=== PATIENT | male | born 1990 | race Caucasian/White ===

== ENCOUNTER 2019-08-07 13:58 | Observation (INO) | payer BC ==
[2019-08-07] MEDS ORDERED: SODIUM CHLORIDE 0.9% 1,000 ML IV STA (14:40)
[2019-08-07] MEDS ORDERED: ACETAMINOPHEN TAB 325 MG TAB PO STA (14:41)
--- NOTE | 2019-08-07 15:30 | ED ---
General Adult HPI - General Chief complaint: Recheck/Abnormal Lab/Rx Stated complaint: hemorrhoids Time Seen by Provider: 08/07/19 14:22 Source: patient, RN notes reviewed, old records reviewed Mode of arrival: ambulatory Limitations: no limitations - History of Present Illness Initial comments: 29-year-old male patient presents to ED for chief complaint of rectal pain. Patient reports that he has history of external hemorrhoids. He states they began having pain and 07/30/19. He states that she went to [facility] yesterday and was prescribed topical steroid cream as well as fiber. He presents to ED because the pain is worse. Otherwise he states he feels well. Denies any cough congestion or any upper respiratory symptoms. Denies any reas on for immunocompromisation. He does report that he has some pain between his coccyx in his rectum. He denies any other complaints at this time. Systemic: Pt denies fatigue, fever/chills, rash. Pt denies weakness, night sweats, weight loss. Neuro: Pt denies headache, visual disturbances, syncope or pre-syncope. HEENT: Pt denies ocular discharge or irritation, otalgia, rhinorrhea, pharyngitis or notable lymphadenopathy. Cardiopulmonary: Pt denies chest pain, SOB, heart palpitations, dyspnea on exertion. Abdominal/GI: Pt denies abdominal pain, n/v/d. : Pt denies dysuria, burning w/ urination, frequency/urgency. Denies new onset urinary or bowel incontinence. MSK: Pt denies myalgia, loss of strength or function in extremities. Neuro: Pt denies new onset weakness, paresthesias. - Related Data Home Medications Medication Instructions Recorded Confirmed Hydrocortisone Pr Cream 1 applic RECTAL BID PRN 08/07/19 08/07/19 [Proctosol-Hc 2.5%] Ibuprofen [Advil] 800 mg PO DAILY PRN 08/07/19 08/07/19 Allergies Allergy/AdvReac Type Severity Reaction Status Date / Time cetirizine [From [facility]] Allergy Rash/Hives Verified 08/07/19 16:00 Review of Systems ROS Statement: Those systems with pertinent positive or pertinent negative responses have been documented in the HPI. ROS Other: All systems not noted in ROS Statement are negative. 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 HEENT: NC/AT, trachea midline. External ears appear normal, without discharge. Mucous membranes moist. Eyes PERRLA, EOM intact. There is no scleral icterus. No pallor noted. Cardiopulmonary: RRR, no murmurs, rubs or gallops, no JVD noted. Lungs CTAB in anterior and posterior rios. No peripheral edema. Abdominal exam: Abdomen soft and non-distended. Abdomen non-tender to palpation in all 4 quadrants. Bowel sounds active in LLQ. No hepatosplenomegaly. No ecchymosis Neuro: CN II-XII grossly intact. No nuchal rigidity. No raccon eyes, no gutierrez sign, no hemotympanum. No cervical spinal tenderness. MSK: No posterior calf tenderness bilaterally, homans sign negative bilaterally. Posterior tibialis and radial pulse +2 bilaterally. Sensation intact in upper and lower extremities. Full active ROM in upper and lower extremities, 5/5 stregnth. Rectal: External hemorrhoids noted. Nonthrombosed, nonbleeding. Mild amount of tenderness between coccyx and rectum region. There are no external skin changes. Limitations: no limitations Course Vital Signs 08/07/19 08/07/19 08/07/19 14:15 14:42 16:47 Temperature 100.8 F H 98.8 F 98.2 F Pulse Rate 98 75 Respiratory 18 18 Rate Blood Pressure 131/80 136/84 O2 Sat by Pulse 99 100 Oximetry 08/07/19 18:24 Temperature Pulse Rate 81 Respiratory 20 Rate Blood Pressure 135/56 O2 Sat by Pulse 99 Oximetry Medical Decision Making - Medical Decision Making 29-year-old male patient presents to ED for chief complaint painful external hemorrhoid ongoing for approximately the last week. Patient also reports some pain between his rectum and coccyx region. Patient vital signs are displayed a fever initially. Physical exam does display some tenderness between the coccyx and the rectum. There are no external skin changes. Laboratory investigations reveal leukocytosis. Ultrasound does displayed possible abscess. Patient is initiated on Zosyn. Case was discussed with Dr. Andrea who came evaluated patient and will admit. Case discussed with Dr. Hoyt. - Lab Data Result diagrams: 08/07/19 15:05 08/07/19 15:05 Lab Results 08/07/19 08/07/19 08/07/19 Range/Units 15:05 15:05 15:05 WBC 20.6 H (3.8-10.6) k/uL RBC 4.26 L (4.30-5.90) m/uL Hgb 13.8 (13.0-17.5) gm/dL Hct 39.8 (39.0-53.0) % MCV 93.5 (80.0-100.0) fL MCH 32.4 (25.0-35.0) pg MCHC 34.7 (31.0-37.0) g/dL RDW 11.8 (11.5-15.5) % Plt Count 229 (150-450) k/uL Neutrophils % 89 % Lymphocytes % 6 % Monocytes % 5 % Eosinophils % 0 % Basophils % 0 % Neutrophils # 18.3 H (1.3-7.7) k/uL Lymphocytes # 1.2 (1.0-4.8) k/uL Monocytes # 0.9 (0-1.0) k/uL Eosinophils # 0.1 (0-0.7) k/uL Basophils # 0.0 (0-0.2) k/uL Sodium 140 (137-145) mmol/L Potassium 4.0 (3.5-5.1) mmol/L Chloride 108 H (98-107) mmol/L Carbon Dioxide 23 (22-30) mmol/L Anion Gap 9 mmol/L BUN 10 (9-20) mg/dL Creatinine 0.73 (0.66-1.25) mg/dL Est GFR (CKD-EPI)AfAm >90 (>60 ml/min/1.73 sqM) Est GFR (CKD-EPI)NonAf >90 (>60 ml/min/1.73 sqM) Glucose 119 H (74-99) mg/dL Plasma Lactic Acid Alex 0.9 (0.7-2.0) mmol/L Calcium 9.3 (8.4-10.2) mg/dL Total Bilirubin 0.7 (0.2-1.3) mg/dL AST 18 (17-59) U/L ALT 16 (4-49) U/L Alkaline Phosphatase 91 (38-126) U/L Total Protein 6.6 (6.3-8.2) g/dL Albumin 3.8 (3.5-5.0) g/dL Lipase 33 (23-300) U/L Urine Color Urine Appearance (Clear) Urine pH (5.0-8.0) Ur Specific Leiter (1.001-1.035) Urine Protein (Negative) Urine Glucose (UA) (Negative) Urine Ketones (Negative) Urine Blood (Negative) Urine Nitrite (Negative) Urine Bilirubin (Negative) Urine Urobilinogen (<2.0) mg/dL Ur Leukocyte Esterase (Negative) 08/07/19 Range/Units 16:06 WBC (3.8-10.6) k/uL RBC (4.30-5.90) m/uL Hgb (13.0-17.5) gm/dL Hct (39.0-53.0) % MCV (80.0-100.0) fL MCH (25.0-35.0) pg MCHC (31.0-37.0) g/dL RDW (11.5-15.5) % Plt Count (150-450) k/uL Neutrophils % % Lymphocytes % % Monocytes % % Eosinophils % % Basophils % % Neutrophils # (1.3-7.7) k/uL Lymphocytes # (1.0-4.8) k/uL Monocytes # (0-1.0) k/uL Eosinophils # (0-0.7) k/uL Basophils # (0-0.2) k/uL Sodium (137-145) mmol/L Potassium (3.5-5.1) mmol/L Chloride (98-107) mmol/L Carbon Dioxide (22-30) mmol/L Anion Gap mmol/L BUN (9-20) mg/dL Creatinine (0.66-1.25) mg/dL Est GFR (CKD-EPI)AfAm (>60 ml/min/1.73 sqM) Est GFR (CKD-EPI)NonAf (>60 ml/min/1.73 sqM) Glucose (74-99) mg/dL Plasma Lactic Acid Alex (0.7-2.0) mmol/L Calcium (8.4-10.2) mg/dL Total Bilirubin (0.2-1.3) mg/dL AST (17-59) U/L ALT (4-49) U/L Alkaline Phosphatase (38-126) U/L Total Protein (6.3-8.2) g/dL Albumin (3.5-5.0) g/dL Lipase (23-300) U/L Urine Color Yellow Urine Appearance Clear (Clear) Urine pH 6.0 (5.0-8.0) Ur Specific Leiter 1.028 (1.001-1.035) Urine Protein Trace H (Negative) Urine Glucose (UA) 1+ H (Negative) Urine Ketones 1+ H (Negative) Urine Blood Negative (Negative) Urine Nitrite Negative (Negative) Urine Bilirubin Negative (Negative) Urine Urobilinogen <2.0 (<2.0) mg/dL Ur Leukocyte Esterase Negative (Negative) Disposition Clinical Impression: Naheed-rectal abscess Disposition: ADMITTED IP TO THIS [facility] Condition: Stable Is patient prescribed a controlled substance at d/c from ED?: No Referrals: None,Stated [Primary Care Provider] - 1-2 days
[2019-08-07 16:11] LABS: Basophils % (A) 0 %; Eosinophils # (A) 0.1 k/uL (0-0.7); Eosinophils % (A) 0 %; HCT 39.8 % (39.0-53.0); HGB 13.8 gm/dL (13.0-17.5); Lymphocytes # (A) 1.2 k/uL (1.0-4.8); Lymphocytes % (A) 6 %; MCH 32.4 pg (25.0-35.0); MCHC 34.7 g/dL (31.0-37.0); MCV 93.5 fL (80.0-100.0); Monocytes # (A) 0.9 k/uL (0-1.0); Monocytes % (A) 5 %; Neutrophils # (A) 18.3 k/uL (1.3-7.7); Neutrophils % (A) 89 %; Platelet Count 229 k/uL (150-450); RBC 4.26 m/uL (4.30-5.90); RDW 11.8 % (11.5-15.5); WBC 20.6 k/uL (3.8-10.6)
[2019-08-07 16:28] LABS: ALT 16 U/L (4-49); AST 18 U/L (17-59); African American GFR (CKD) >90 (>60 ml/min/1.73 sqM); Albumin 3.8 g/dL (3.5-5.0); Alkaline Phosphatase 91 U/L (38-126); Anion Gap 9 mmol/L; Blood Urea Nitrogen 10 mg/dL (9-20); Calcium 9.3 mg/dL (8.4-10.2); Carbon Dioxide 23 mmol/L (22-30); Chloride 108 mmol/L (98-107); Glucose 119 mg/dL (74-99); Non-African American GFR(CKD) >90 (>60 ml/min/1.73 sqM); Sodium 140 mmol/L (137-145); Total Bilirubin 0.7 mg/dL (0.2-1.3); Total Protein 6.6 g/dL (6.3-8.2)
[2019-08-07 16:35] LABS: Appearance,Urine Clear (Clear); Bilirubin,Urine Negative (Negative); Blood,Urine Negative (Negative); Color,Urine Yellow; Glucose,Urine (UA) 1+ (Negative); Ketones,Urine 1+ (Negative); Leukocyte Esterase,Urine Negative (Negative); Nitrite,Urine Negative (Negative); Protein,Urine Trace (Negative); Specific Gravity,Urine 1.028 (1.001-1.035); Urobilinogen,Urine <2.0 mg/dL (<2.0)
--- NOTE | 2019-08-07 17:06 | US ---
EXAMINATION TYPE: US pelvic limited DATE OF EXAM: 08/07/2019 COMPARISON: NONE CLINICAL HISTORY: rectal pain . Redness around rectum. Patient states no trauma or injury. Scanning was performed directly over red raised area at rectum. There is a complex fluid collection w ith vascularity measuring 5.5 x 3.9 cm. On real time imaging there is swirling and movement of the in ternal echoes. IMPRESSION: There is complex area of fluid in the area of redness around the rectum consistent with a bscess. Hematoma also possible.
[2019-08-07] MEDS ORDERED: PIPERACILLIN-TAZOBACTAM 3.375 GM in SODIUM CHLORIDE 0.9% 100 ML IVPB STA (17:09)
[2019-08-07] MEDS ORDERED: NALOXONE 0.4 MG/ML 1 ML VIAL IV PRN (17:54)
[2019-08-07] MEDS ORDERED: MORPHINE SULFATE 4 MG/ML SYRINGE IV PRN (17:54)
--- NOTE | 2019-08-07 18:02 | XR ---
EXAMINATION TYPE: XR KUB DATE OF EXAM: 08/07/2019 COMPARISON: NONE HISTORY: Rectal pain TECHNIQUE: 2 views FINDINGS: 2 views upright show no sign of intestinal obstruction or pneumoperitoneum. Fecal pattern i s normal. There is no sign of a mass. Lung bases are clear. IMPRESSION: Nonacute abdomen.
[2019-08-07] MEDS: HYDROmorphone 1 MG/ML 1 ML SYRINGE IVP PRN ×2 (18:10→21:44)
[2019-08-07] MEDS: SODIUM CHLORIDE 0.9% 1,000 ML IV SCH (18:13)
[2019-08-07] MEDS: ACETAMINOPHEN TAB 325 MG TAB PO PRN (23:15)
[2019-08-08] MEDS: PIPERACILLIN-TAZOBACTAM 3.375 GM in SODIUM CHLORIDE 0.9% 100 ML IVPB SCH ×4 (00:24→22:46)
[2019-08-08] MEDS: HYDROmorphone 1 MG/ML 1 ML SYRINGE IVP PRN ×5 (02:09→22:07)
[2019-08-08] MEDS: SODIUM CHLORIDE 0.9% 1,000 ML IV SCH ×3 (04:17→22:46)
[2019-08-08] MEDS: ACETAMINOPHEN TAB 325 MG TAB PO PRN (05:58)
[2019-08-08 09:53] LABS: HCT 36.8 % (39.0-53.0); HGB 12.8 gm/dL (13.0-17.5); MCH 32.9 pg (25.0-35.0); MCHC 34.8 g/dL (31.0-37.0); MCV 94.8 fL (80.0-100.0); Mean Platelet Volume 7.5; Platelet Count 241 k/uL (150-450); RBC 3.89 m/uL (4.30-5.90); RDW 11.7 % (11.5-15.5); WBC 18.2 k/uL (3.8-10.6)
[2019-08-08] MEDS: IOPAMIDOL CONTRAST (ORAL USE) VIAL PO PRN ×2 (11:33→12:29)
[2019-08-08] MEDS ORDERED: HYDROmorphone 0.5 MG/0.5 ML SYRINGE IVP PRN (13:25)
[2019-08-08] MEDS ORDERED: ONDANSETRON 4 MG/2 ML VIAL IVP ONE (13:25)
[2019-08-08] MEDS ORDERED: DEXAMETHASONE SOD PHOSPHATE 10 MG/ML 1 ML VIAL IV ONE (13:25)
--- NOTE | 2019-08-08 13:51 | CT ---
EXAMINATION TYPE: CT pelvis w con DATE OF EXAM: 08/08/2019 COMPARISON: INDICATION: perirectal abscess DLP: 734.2 mGycm, Automated exposure control for dose reduction was used. CONTRAST: 100 mL of Isovue 300. Study performed with Oral Contrast TECHNIQUE: Axial images were obtained from above the diaphragm to the pubic rami in the axial plane a t 5 mm thick sections. Reconstructed images are reviewed on the computer in the coronal plane. FINDINGS: CT PELVIS: Loops of bowel within the abdomen and pelvis are normal. The study is performed with oral contras t. There are loops of bowel with incomplete distention or lacking oral contrast limiting their evalua tion. There is some diffuse rectal wall thickening appears to be present. There is some hypodensity p osterior to the rectum measuring 1.2 x 2.3 cm. Series 201 image 63. This could reflect the patient's reported perirectal abscess. Appendix: Normal as visualized. Urinary bladder: Normal. Genitourinary structures: Prostate hypertrophy is present Osseous structures: No suspicious lytic or sclerotic lesions. IMPRESSIONS: 1. There is some subtle hypodensity posterior to the rectum. Rectal wall thickening appears to be pr esent. Correlate for perirectal abscess.
[2019-08-08] MEDS: LACTATED RINGERS 1,000 ML IV SCH (15:24)
--- NOTE | 2019-08-08 15:28 | P.GSHP ---
History of Present Illness H&P Date: 08/07/19 Chief Complaint: Perirectal pain Is a 29-year-old male was admitted through the emergency room with complaints of perirectal pain. Patient ultrasound which is questionable for a perineal abscess. Patient has leukocytosis with white count 20,000. He states he has had pain for approximately 3 days. 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, Past Anesthesia/Blood Transfusion Reactions: No Reported Reaction Past Psychological History: No Psychological Hx Reported Smoking Status: Current every day smoker Past Alcohol Use History: Occasional Past Drug Use History: Marijuana Medications and Allergies Home Medications Medication Instructions Recorded Confirmed Type Hydrocortisone Pr Cream 1 applic RECTAL BID PRN 08/07/19 08/07/19 History [Proctosol-Hc 2.5%] Ibuprofen [Advil] 800 mg PO DAILY PRN 08/07/19 08/07/19 History Allergies Allergy/AdvReac Type Severity Reaction Status Date / Time cetirizine [From [facility]] Allergy Rash/Hives Verified 08/07/19 16:00 Surgical - Exam Vital Signs Temp Pulse Resp BP Pulse Ox 100.8 F H 98 18 131/80 99 08/07/19 14:15 08/07/19 14:15 08/07/19 14:15 08/07/19 14:15 08/07/19 14:15 - General well developed, well nourished, no distress - Eyes PERRL - ENT normal pinna - Neck no masses - Respiratory normal expansion - Cardiovascular Rhythm: regular - Abdomen Abdomen: soft, non tender - Rectum No evidence of abscess in the perianal area. There is some tenderness in the posterior position. However there is no fluctuant mass. Results - Labs 08/08/19 09:19 08/07/19 15:05 Abnormal Lab Results - Last 24 Hours (Table) 08/07/19 08/07/19 08/07/19 Range/Units 15:05 15:05 16:06 WBC 20.6 H (3.8-10.6) k/uL RBC 4.26 L (4.30-5.90) m/uL Hgb (13.0-17.5) gm/dL Hct (39.0-53.0) % Neutrophils # 18.3 H (1.3-7.7) k/uL Chloride 108 H (98-107) mmol/L Glucose 119 H (74-99) mg/dL Urine Protein Trace H (Negative) Urine Glucose (UA) 1+ H (Negative) Urine Ketones 1+ H (Negative) 08/08/19 Range/Units 09:19 WBC 18.2 H (3.8-10.6) k/uL RBC 3.89 L (4.30-5.90) m/uL Hgb 12.8 L (13.0-17.5) gm/dL Hct 36.8 L (39.0-53.0) % Neutrophils # (1.3-7.7) k/uL Chloride (98-107) mmol/L Glucose (74-99) mg/dL Urine Protein (Negative) Urine Glucose (UA) (Negative) Urine Ketones (Negative) Diabetes panel 08/07/19 Range/Units 15:05 Sodium 140 (137-145) mmol/L Potassium 4.0 (3.5-5.1) mmol/L Chloride 108 H (98-107) mmol/L Carbon Dioxide 23 (22-30) mmol/L BUN 10 (9-20) mg/dL Creatinine 0.73 (0.66-1.25) mg/dL Glucose 119 H (74-99) mg/dL Calcium 9.3 (8.4-10.2) mg/dL AST 18 (17-59) U/L ALT 16 (4-49) U/L Alkaline Phosphatase 91 (38-126) U/L Total Protein 6.6 (6.3-8.2) g/dL Albumin 3.8 (3.5-5.0) g/dL Calcium panel 08/07/19 Range/Units 15:05 Calcium 9.3 (8.4-10.2) mg/dL Albumin 3.8 (3.5-5.0) g/dL Pituitary panel 08/07/19 Range/Units 15:05 Sodium 140 (137-145) mmol/L Potassium 4.0 (3.5-5.1) mmol/L Chloride 108 H (98-107) mmol/L Carbon Dioxide 23 (22-30) mmol/L BUN 10 (9-20) mg/dL Creatinine 0.73 (0.66-1.25) mg/dL Glucose 119 H (74-99) mg/dL Calcium 9.3 (8.4-10.2) mg/dL Adrenal panel 08/07/19 Range/Units 15:05 Sodium 140 (137-145) mmol/L Potassium 4.0 (3.5-5.1) mmol/L Chloride 108 H (98-107) mmol/L Carbon Dioxide 23 (22-30) mmol/L BUN 10 (9-20) mg/dL Creatinine 0.73 (0.66-1.25) mg/dL Glucose 119 H (74-99) mg/dL Calcium 9.3 (8.4-10.2) mg/dL Total Bilirubin 0.7 (0.2-1.3) mg/dL AST 18 (17-59) U/L ALT 16 (4-49) U/L Alkaline Phosphatase 91 (38-126) U/L Total Protein 6.6 (6.3-8.2) g/dL Albumin 3.8 (3.5-5.0) g/dL Assessment and Plan Assessment: Probable perirectal abscess. Patient received IV antibiotic. He'll undergo computed tomography scan of his pelvis tomorrow.
--- NOTE | 2019-08-08 15:29 | P.PN ---
Progress Note - Text Progress Note Date: 08/08/19 The patient states he feels better. His CAT scan performed today shows a subtle area of thickness in the posterior rectum. There is no definite abscess. The patient states he feels better his pain is improved. On exam his vital signs are stable. Abdomen soft. Examination anus reveals no evidence of a abscess. There is no fluctuant mass. Resolving perirectal abscess. Patient will receive IV antibiotics.
[2019-08-09 08:42] LABS: HCT 39.2 % (39.0-53.0); HGB 13.3 gm/dL (13.0-17.5); MCH 32.2 pg (25.0-35.0); MCHC 33.8 g/dL (31.0-37.0); MCV 95.2 fL (80.0-100.0); Mean Platelet Volume 7.5; Platelet Count 279 k/uL (150-450); RBC 4.12 m/uL (4.30-5.90); RDW 11.8 % (11.5-15.5)
[2019-08-09] MEDS: PIPERACILLIN-TAZOBACTAM 3.375 GM in SODIUM CHLORIDE 0.9% 100 ML IVPB SCH ×3 (08:50→23:59)
--- NOTE | 2019-08-09 08:53 | P.PN ---
Progress Note - Text Progress Note Date: 08/09/19 Patient states he feels better. He has decreased pain. On exam his vital signs are stable. Examination of the perianal area reveals no significant swelling or induration. There is no fluctuant mass. There is no abscess palpable. Patient continue receive IV antibiotics. We will repeat his CBC today. No surgical intervention at this point.
[2019-08-09] MEDS: HYDROmorphone 1 MG/ML 1 ML SYRINGE IVP PRN ×4 (10:05→23:34)
[2019-08-09] MEDS: SODIUM CHLORIDE 0.9% 1,000 ML IV SCH ×2 (12:25→21:36)
[2019-08-09] MEDS: LACTATED RINGERS 1,000 ML IV SCH (14:31)
[2019-08-10] MEDS: SODIUM CHLORIDE 0.9% 1,000 ML IV SCH ×2 (06:15→15:50)
[2019-08-10] MEDS: PIPERACILLIN-TAZOBACTAM 3.375 GM in SODIUM CHLORIDE 0.9% 100 ML IVPB SCH ×2 (08:48→15:49)
--- NOTE | 2019-08-10 11:03 | P.PN ---
Progress Note - Text Progress Note Date: 08/10/19 The patient feels better. He states his rectal pain is improved. On exam vital signs are stable. Abdomen soft. There is no evidence of any perianal abscess. There is no evidence of any inflammatory changes or fluctuant masses. Resolving perianal abscess. Patient will receive IV antibiotics today. We discussed the discharge home tomorrow.
[2019-08-10] MEDS: HYDROmorphone 1 MG/ML 1 ML SYRINGE IVP PRN ×2 (13:33→17:01)
[2019-08-11 00:24] VITALS: TEMP 97.9
[2019-08-11] MEDS: PIPERACILLIN-TAZOBACTAM 3.375 GM in SODIUM CHLORIDE 0.9% 100 ML IVPB SCH ×3 (00:24→15:10)
[2019-08-11] MEDS: SODIUM CHLORIDE 0.9% 1,000 ML IV SCH ×2 (04:17→14:56)
[2019-08-11 08:12] VITALS: BP 92/54; PULSE 75; RESP 16
--- NOTE | 2019-08-11 13:49 | P.PN ---
Subjective Progress Note Date: 08/11/19 CHIEF COMPLAINT: Perirectal abscess HISTORY OF PRESENT ILLNESS: The patient is a 29-year-old male who presented with acute perirectal abscess. He presented with sepsis white count over 20,000. Since admission, WBC count has improved. He is on antibiotics. His pain is controlled. He is eager to go home. ROS: No reports of nausea and vomiting. No bowel movements. No fevers or chills. No new chest pain. No productive sputum PHYSICAL EXAM: VITAL SIGNS: Reviewed CONSTITUTIONAL: Well developed and in no acute distress. EYES: Conjuctivae without sclera icterus. Extraocular movements grossly intact. HEAD, EARS, NOSE, THROAT: Moist buccal mucosa. Head is atraumatic, normocephalic. Hears conversational speech. No nasal drainage. NECK: Supple. No thyroidomegaly. RESPIRATORY: Non-labored respirations and equal bilateral excursions. CARDIOVASCULAR: Palpable 2+ radial pulses. Regular rate. Regular rhythm. ABDOMEN: Soft. No peritonitis. MUSCULOSKELETAL: No gross deformity of the lower extremities noted. No clubbing. No cyanosis. SKIN: Good skin turgor. Well perfused. NEUROLOGIC: Cranial nerves II through XII grossly intact. No focal or lateralizing signs. PSYCH: Appropriate affect. Alert and oriented to person, place and time. CLINICAL LABS: White blood cell count down from 20.6-12.0. ASSESSMENT: 1. Acute perirectal abscess PLAN: 1. Ciprofloxacin for antibiotics has been prescribed. 2. Recommend sitz baths for perirectal pain. 3. Follow-up as outpatient. Objective - Vital Signs Vital signs: Vital Signs Temp 97.9 F 08/11/19 08:00 Pulse 75 08/11/19 08:00 Resp 16 08/11/19 08:00 BP 92/54 08/11/19 08:00 Pulse Ox 100 08/11/19 08:00 Intake & Output 08/10/19 08/11/19 08/11/19 18:59 06:59 18:59 Intake Total 1680 700 600 Balance 1680 700 600 Intake: Intake, IV Titration 100 700 Amount Piperacillin-Tazobactam 3 100 100 .375 gm In Sodium Chloride 0.9% 100 ml @ 25 mls/hr IVPB Q8HR [facility] Rx# :[id number] Sodium Chloride 0.9% 1, 600 000 ml @ 100 mls/hr IV . Q10H [facility] Rx#:[id number] Oral 1580 600 Other: Voiding Method Toilet # Voids 3 1 - Labs CBC & Chem 7: 08/09/19 08:14 08/07/19 15:05
--- NOTE | 2019-08-14 06:59 | CDI ---
Documentation Clarification Form Date: 08/14/2019 06:49:02 AM From: Faith Gan Phone: If you have a question about this query, please contact Shweta Romo Brush Cleaner at [phone] between 8am and 5pm. Admit Date: 08/09/2019 09:34:00 AM Patient Name: Antwan Go Visit Number: [id number] Discharge Date: 08/11/2019 03:25:00 PM ATTENTION: The Clinical Documentation Specialists (CDI) and [facility] Coding Staff appreciate your assistance in clarifying documentation. Please respond to the clarification below the line at the bottom and electronically sign. The CDI & [facility] Coding staff will review the response and follow-up if needed. Please note: Queries are made part of the Legal Health Record. If you have any questions, please contact the author of this message via ITS. Dr. Jack Gaytan PN 08/10 documents Patient presented with sepsis WBC's over 20,000. Please clarify if patient had sepsis or was this ruled out. History/Risk Factors: perirectal abscess Clinical Indicators: WBC 20.6 Lactic acid: 0.09 Vitals signs on admission: 100.8 F, 98 bpm, 18, 131/80, 99% RA Treatment: IV antibiotics Antibiotics: Ciproflaxin In your professional opinion, please clarify if these findings signify one of the following conditions, whether the condition is POA, and cause, if known: Condition Sepsis ruled out SIRS, without underlying infectious process Sepsis Severe Sepsis Septic Shock Other, please specify Unable to determine SIRS Criteria (2 or more of the following may indicate SIRS): -Temperature < 96.8F (36C) or > 101.0F (38.3C) -Heart Rate > 90 bpm -Respiratory Rate > 20 breaths/min or PaCO2 < 32 mmHg -White Blood Cell Count > 12,000 or < 4,000 cells/mm3 or > 10% bands -Lactate >2.0 mmol/L (>4.0 is equivalent to septic shock) [facility]eps[facility]
--- NOTE | 2019-08-17 17:06 | P.DS ---
Providers Date of admission: 08/07/19 22:01 Expected date of discharge: 08/11/19 Attending physician: Jack Gaytan Primary care physician: Stated None - Discharge Diagnosis(es) (1) Sepsis Status: Acute (2) Naheed-rectal abscess Status: Acute Hospital Course: CHIEF COMPLAINT: Perirectal abscess HISTORY OF PRESENT ILLNESS: The patient is a 29-year-old male who presented with acute perirectal abscess. He presented with sepsis white count over 20,000. Since admission, WBC count has improved. He is on antibiotics. His pain is controlled. He is eager to go home. ROS: No reports of nausea and vomiting. No bowel movements. No fevers or chills. No new chest pain. No productive sputum PHYSICAL EXAM: VITAL SIGNS: Reviewed CONSTITUTIONAL: Well developed and in no acute distress. EYES: Conjuctivae without sclera icterus. Extraocular movements grossly intact. HEAD, EARS, NOSE, THROAT: Moist buccal mucosa. Head is atraumatic, normocephalic. Hears conversational speech. No nasal drainage. NECK: Supple. No thyroidomegaly. RESPIRATORY: Non-labored respirations and equal bilateral excursions. CARDIOVASCULAR: Palpable 2+ radial pulses. Regular rate. Regular rhythm. ABDOMEN: Soft. No peritonitis. MUSCULOSKELETAL: No gross deformity of the lower extremities noted. No clubbing. No cyanosis. SKIN: Good skin turgor. Well perfused. NEUROLOGIC: Cranial nerves II through XII grossly intact. No focal or lateralizing signs. PSYCH: Appropriate affect. Alert and oriented to person, place and time. CLINICAL LABS: White blood cell count down from 20.6-12.0. ASSESSMENT: 1. Acute perirectal abscess PLAN: 1. Ciprofloxacin for antibiotics has been prescribed. 2. Recommend sitz baths for perirectal pain. 3. Follow-up as outpatient. Patient Condition at Discharge: Stable Plan - Discharge Summary Discharge Rx Participant: No New Discharge Prescriptions: New Ciprofloxacin HCl [Cipro] 500 mg PO Q12HR 3 Days #6 tab HYDROcodone/APAP 5-325MG [[place] 5-325] 1 tab PO Q6HR PRN #10 tab PRN Reason: Pain No Action Hydrocortisone Pr Cream [Proctosol-Hc 2.5%] 1 applic RECTAL BID PRN PRN Reason: hemorroids Ibuprofen [Advil] 800 mg PO DAILY PRN PRN Reason: Pain Discharge Medication List Hydrocortisone Pr Cream [Proctosol-Hc 2.5%] 1 applic RECTAL BID PRN 08/07/19 [History] Ibuprofen [Advil] 800 mg PO DAILY PRN 08/07/19 [History] Ciprofloxacin HCl [Cipro] 500 mg PO Q12HR 3 Days #6 tab 08/10/19 [Rx] HYDROcodone/APAP 5-325MG [[place] 5-325] 1 tab PO Q6HR PRN #10 tab 08/10/19 [Rx] Follow up Appointment(s)/Referral(s): None,Stated [Primary Care Provider] - 1-2 days (Dr. Sumeet Harrison, [facility] primary care ) Jack Gaytan MD [STAFF PHYSICIAN] - 1 Week Patient Instructions/Handouts: Sitz Bath (DC), Rectal Abscess (DC) Activity/Diet/Wound Care/Special Instructions: Use sitz bath 15 minutes twice daily. Discharge/Stand Alone Forms: Work/School Release Discharge Disposition: HOME SELF-CARE
== END 2019-08-11 15:25 | disposition home or self-care (01) ==
LOC: EC 13:58 → 1SOBS 22:01 → OBSVTOIN 08-09 09:34 → INTOOBSV 08-09 09:34 → UNDODISIN 08-11 15:25
PROVIDERS: ADMIT Surgery; ATTEND Surgery
DX: A41.9 Sepsis, unspecified organism (principal); K61.1 Rectal abscess; K64.4 Residual hemorrhoidal skin tags; Z87.442 Personal history of urinary calculi; Z03.818 Encounter for observation for suspected exposure to other biological agents ruled out; Z89.022 Acquired absence of left finger(s); F17.200 Nicotine dependence, unspecified, uncomplicated; Z88.8 Allergy status to other drugs, medicaments and biological substances
CPT/HCPCS: 96361 ×4; 96366 ×4; 96376 ×4; 96365; 96375; 99285; 36415; 80053; 83605; 83690; 85025; 85027 ×2; 81003; 74018; 76857; 72193; G0378 ×5; U0003; J2543 ×5; J1170 ×4; Q9967

== ENCOUNTER 2020-05-18 20:24 | Emergency (ER) | payer BC ==
[2020-05-18] MEDS ORDERED: SODIUM CHLORIDE 0.9% 2,400 ML IV STA (21:02)
[2020-05-18] MEDS ORDERED: cefTRIAXone IN SWFI 1,000 MG/10 ML SYRINGE IVP STA (21:19)
[2020-05-18] MEDS ORDERED: KETOROLAC 15 MG/ML 1 ML VIAL IVP STA (21:20)
[2020-05-18 21:39] LABS: Basophils # (A) 0.1 k/uL (0-0.2); Basophils % (A) 1 %; Eosinophils # (A) 0.1 k/uL (0-0.7); Eosinophils % (A) 0 %; HCT 45.9 % (39.0-53.0); HGB 16.6 gm/dL (13.0-17.5); Lymphocytes # (A) 1.4 k/uL (1.0-4.8); Lymphocytes % (A) 12 %; MCH 32.8 pg (25.0-35.0); MCHC 36.2 g/dL (31.0-37.0); MCV 90.8 fL (80.0-100.0); Mean Platelet Volume 8.3; Monocytes # (A) 0.6 k/uL (0-1.0); Monocytes % (A) 5 %; Neutrophils # (A) 9.8 k/uL (1.3-7.7); Neutrophils % (A) 82 %; Platelet Count 123 k/uL (150-450); RBC 5.06 m/uL (4.30-5.90); RDW 11.7 % (11.5-15.5); WBC 11.9 k/uL (3.8-10.6)
[2020-05-18 21:41] VITALS: TEMP 99.2
[2020-05-18] MEDS ORDERED: LIDOCAINE 1%-EPI 1:100,000 20 ML VIAL SQ STA (21:53)
[2020-05-18 22:20] LABS: ALT 17 U/L (4-49); AST 23 U/L (17-59); African American GFR (CKD) >90 (>60 ml/min/1.73 sqM); Albumin 4.6 g/dL (3.5-5.0); Alkaline Phosphatase 89 U/L (38-126); Anion Gap 11 mmol/L; Blood Urea Nitrogen 13 mg/dL (9-20); Calcium 9.5 mg/dL (8.4-10.2); Carbon Dioxide 24 mmol/L (22-30); Chloride 107 mmol/L (98-107); Glucose 106 mg/dL (74-99); Non-African American GFR(CKD) >90 (>60 ml/min/1.73 sqM); Sodium 142 mmol/L (137-145); Total Bilirubin 0.9 mg/dL (0.2-1.3); Total Protein 7.4 g/dL (6.3-8.2)
--- NOTE | 2020-05-18 22:28 | ED ---
Skin/Abscess/FB HPI - General Chief complaint: Skin/Abscess/Foreign Body Stated complaint: Abscess Time Seen by Provider: 05/18/20 20:49 Source: patient Mode of arrival: wheelchair Limitations: no limitations - History of Present Illness Initial comments: 30-year-old male presents to emergency Department with a chief complaint of an abscess. Patient reports abscess is located near the coccyx. He also reports having chills earlier today. States he has been previously evaluated for the same abscess about 1 year ago and was only treated with antibiotics. Patient reports now this one has increased over the last several days. States that his difficult to walk due to the discomfort. Pain is especially worse whenever he sitting down. He denies any nausea vomiting diarrhea. - Related Data Home Medications Medication Instructions Recorded Confirmed Hydrocortisone Pr Cream 1 applic RECTAL BID PRN 08/07/19 08/07/19 [Proctosol-Hc 2.5%] Ibuprofen [Advil] 800 mg PO DAILY PRN 08/07/19 08/07/19 Previous Rx's Medication Instructions Recorded Ciprofloxacin HCl [Cipro] 500 mg PO Q12HR 3 Days #6 tab 08/10/19 HYDROcodone/APAP 5-325MG [Hoffman 1 tab PO Q6HR PRN #10 tab 08/10/19 5-325] Clindamycin [Cleocin] 150 mg PO Q6H #40 capsule 05/18/20 Allergies Allergy/AdvReac Type Severity Reaction Status Date / Time cetirizine [From Zyrtec] Allergy Rash/Hives Verified 05/18/20 20:31 Review of Systems ROS Statement: Those systems with pertinent positive or pertinent negative responses have been documented in the HPI. ROS Other: All systems not noted in ROS Statement are negative. 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, Past Anesthesia/Blood Transfusion Reactions: No Reported Reaction Past Psychological History: No Psychological Hx Reported Smoking Status: Current every day smoker Past Alcohol Use History: Occasional Past Drug Use History: Marijuana General Exam Limitations: no limitations General appearance: alert, in no apparent distress Head exam: Present: atraumatic, normocephalic, normal inspection Eye exam: Present: normal appearance, PERRL, EOMI Pupils: Present: normal accommodation ENT exam: Present: normal exam, normal oropharynx, mucous membranes moist, TM's normal bilaterally, normal external ear exam Neck exam: Present: normal inspection, full ROM. Absent: tenderness Respiratory exam: Present: normal lung sounds bilaterally. Absent: respiratory distress Cardiovascular Exam: Present: regular rate, normal rhythm, normal heart sounds GI/Abdominal exam: Present: soft. Absent: distended, tenderness, guarding, rebound Rectal exam: Present: normal inspection (Fluctuant abscess measuring approximately 1 cm in diameter located closer to the coccyx.) Extremities exam: Present: normal inspection, full ROM. Absent: tenderness Back exam: Present: normal inspection, full ROM. Absent: tenderness Neurological exam: Present: alert, oriented X3 Psychiatric exam: Present: normal affect, normal mood Skin exam: Present: warm, dry, intact, normal color Course Vital Signs 05/18/20 05/18/20 05/18/20 20:26 21:41 22:48 Temperature 101.9 F H 99.2 F Pulse Rate 96 66 Respiratory 20 18 Rate Blood Pressure 121/80 137/69 O2 Sat by Pulse 99 100 Oximetry Procedures - Incision & Drainage Consent Obtained: verbal consent Indication: Pilonidal abscess Site: other (Gluteal cleft) Size (cm): 1 Anesthetic Used: lidocaine 1%, with epi Amount (mLs): 2 I&D Cleaning Method: Betadine Sterile Field Used?: No Scalpel Used: #11 Needle Aspiration Performed?: No Irrigation Performed?: Yes I&D Drainage Obtained: Pus, Blood Culture Obtained?: No Complications: pain, bleeding Patient Tolerated Procedure: well, no complications Medical Decision Making - Medical Decision Making 30-year-old male presents to emergency room with a chief complaint of an abscess. On physical examination, patient is slightly febrile and he has a pilonidal abscess. This is measuring approximately 1 cm, fluctuant. Slight surrounding erythema. Patient is nontoxic and well-appearing. CBC reveals mild leukocytosis of 11.2 K. Lactic acid within normal limits. Incision and drainage performed, patient tolerated procedure well. Large amounts of pustular discharge. Patient started on clindamycin. Will be discharged with on the clindamyoosin. He was advised to apply warm compresses. Strict return parameters were thoroughly discussed the patient was understanding and agreeable. Case discussed with Dr Gonzalez - Lab Data Result diagrams: 05/18/20 21:18 05/18/20 21:18 Lab Results 05/18/20 05/18/20 05/18/20 Range/Units 21:18 21:18 21:18 WBC 11.9 H (3.8-10.6) k/uL RBC 5.06 (4.30-5.90) m/uL Hgb 16.6 (13.0-17.5) gm/dL Hct 45.9 (39.0-53.0) % MCV 90.8 (80.0-100.0) fL MCH 32.8 (25.0-35.0) pg MCHC 36.2 (31.0-37.0) g/dL RDW 11.7 (11.5-15.5) % Plt Count 123 L (150-450) k/uL MPV 8.3 Neutrophils % 82 % Lymphocytes % 12 % Monocytes % 5 % Eosinophils % 0 % Basophils % 1 % Neutrophils # 9.8 H (1.3-7.7) k/uL Lymphocytes # 1.4 (1.0-4.8) k/uL Monocytes # 0.6 (0-1.0) k/uL Eosinophils # 0.1 (0-0.7) k/uL Basophils # 0.1 (0-0.2) k/uL Sodium 142 (137-145) mmol/L Potassium 4.0 (3.5-5.1) mmol/L Chloride 107 (98-107) mmol/L Carbon Dioxide 24 (22-30) mmol/L Anion Gap 11 mmol/L BUN 13 (9-20) mg/dL Creatinine 0.87 (0.66-1.25) mg/dL Est GFR (CKD-EPI)AfAm >90 (>60 ml/min/1.73 sqM) Est GFR (CKD-EPI)NonAf >90 (>60 ml/min/1.73 sqM) Glucose 106 H (74-99) mg/dL Plasma Lactic Acid Alex 1.4 (0.7-2.0) mmol/L Calcium 9.5 (8.4-10.2) mg/dL Total Bilirubin 0.9 (0.2-1.3) mg/dL AST 23 (17-59) U/L ALT 17 (4-49) U/L Alkaline Phosphatase 89 (38-126) U/L Total Protein 7.4 (6.3-8.2) g/dL Albumin 4.6 (3.5-5.0) g/dL Disposition Clinical Impression: Pilonidal abscess Disposition: HOME SELF-CARE Condition: Stable Instructions (If sedation given, give patient instructions): Abscess Incision and Drainage (ED), Abscess (ED) Additional Instructions: Take prescribed medication as directed. Apply warm compresses at least twice a day. Return to emergency department if symptoms worsen. Prescriptions: Clindamycin [Cleocin] 150 mg PO Q6H #40 capsule Is patient prescribed a controlled substance at d/c from ED?: No Referrals: None,Stated [Primary Care Provider] - 1-2 days Time of Disposition: 23:03
[2020-05-18 22:48] VITALS: BP 137/69; PULSE 66; RESP 18
[2020-05-18] MEDS ORDERED: CLINDAMYCIN 150 MG CAP PO STA (23:03)
== END 2020-05-18 23:21 | disposition home or self-care (01) ==
LOC: EC 20:24
DX: L05.01 Pilonidal cyst with abscess (principal); F17.200 Nicotine dependence, unspecified, uncomplicated; Z87.442 Personal history of urinary calculi; Z79.1 Long term (current) use of non-steroidal anti-inflammatories (NSAID)
CPT/HCPCS: 36415; 80053; 83605; 85025; 87040; 99283; 10080; 96374; 96375; 96361; J0696; J1885